=== PATIENT | female | born 1980 | race Caucasian/White ===

== ENCOUNTER 2020-10-09 15:38 | Emergency (ER) | payer MEDICAID, SELFPAY ==
[2020-10-09 15:43] VITALS: BP 124/73; PULSE 105; RESP 18; TEMP 36.8; O2SAT 98; BMI 24.3
--- NOTE | 2020-10-09 16:56 | XR_ITS ---
WS: [id number] KUB, AP supine portable, 10/09/2020 Clinical Data: Constipation Comparison: None. Findings: No abnormal intraabdominal masses or calcifications are seen. There is no dilatated small bowel or ev idence of obstruction. There is air in the stomach and small bowel. XR/XR KUB portable [id number] Impression: Negative KUB.
--- NOTE | 2020-10-09 16:57 | ED_ITS ---
HPI - Abdominal Pain General: Chief Complaint: Abdominal Pain Stated Complaint: WORSENING LOWER AB & BACK PAIN Time Seen by Provider: 10/09/20 16:53 Source: patient, RN notes reviewed and old records reviewed Mode of arrival: ambulatory Limitations: no limitations History of Present Illness: HPI narrative: This patient is a 40-year-old female who presents to the emergency room what she believes is constipation. Patient complains of discomfort to the left lower quadrant. States that she has not had a bowel movement that with any consistency over the past week to 10 days. Patient recently got off. And states that she has had little to no stool since. Patient states that she did take an [id number] laxative this cause increased cramping and a little bit of watery stool but has not had a good bowel movement and does not believe she is completely emptied out. Patient states she is is common for her and that she has a long history of constipation issues. We will do medical evaluation treat as needed. Patient denies nausea vomiting. MD elicited complaint: abdominal pain Pertinent past history: constipation Onset (ago): week(s) Pain Consistency: constant Location: LLQ Severity: mild Quality: cramping Associated Symptoms: Reports constipation; Denies chills, diarrhea, fever(s), nausea and vomiting Related Data: Date of Last Menstrual Period: 09/29/20 Review of Systems General: Reports: 10 or more systems reviewed and unremarkable except in HPI and below Const: Denies: fever(s), chills or body aches Eyes: Denies: change in vision or eye discharge ENMT: Denies: throat pain, odynophagia, hoarseness or mouth pain Card: Denies: chest pain, palpitations or irregular heart rhythm Resp: Denies: dyspnea, productive cough or wheezing GI: Reports: abdominal pain and constipation; Denies: nausea, vomiting, dysphagia or diarrhea : Denies: flank pain or difficulty voiding Musc: Denies: back pain [facility] ED Female Reproductive History: Date of last menstrual period: 09/29/20 Physical Exam Const: COMMON NORMALS: no acute distress, average body habitus, patient oriented x3, no limitations, healthy appearing, alert and well nourished HENMT: COMMON NORMALS: normocephalic, atraumatic, hearing grossly normal bilaterally, external ears normal, EAC's normal, TM's normal bilaterally, Normal external nose present, Normal nasal mucous membranes and turbinates present, moist oral mucous membranes, oropharynx normal, dentition normal and gingiva normal HEAD & SCALP: normocephalic and atraumatic NOSE: Normal external nose present and Normal nasal mucous membranes and turbinates present EXTERNAL EAR: Yes external ears normal EXTERNAL AUDITORY CANAL: EAC's normal TYMPANIC MEMBRANE: TM's normal bilaterally Neck/C-Spine: COMMON NORMALS: no JVD Chest: COMMONS NORMALS: normal inspection of the chest, normal palpation of entire chest wall, normal inspection of the breasts and normal palpation of the breasts Breast/axilla inspection: Yes normal inspection of the breasts BREAST/AXILLA PALPATION: Yes normal palpation of the breasts Resp: COMMON NORMALS: normal respiratory effort, No retractions, No use of accessory muscles, clear to auscultation bilaterally and percussion normal AUSCULTATION: clear to auscultation bilaterally PERCUSSION: percussion normal Cardio: COMMON NORMALS: no JVD, regular rate, regular rhythm, S1 normal heart sound present, S2 normal heart sound present, No gallops present (Cardio), No clicks present (Cardio), No murmurs present (Cardio), No rub (Cardio) and Peripheral pulses 2+ throughout RATE: regular rate RHYTHM: regular rhythm HEART SOUNDS: S1 normal heart sound present and S2 normal heart sound present PERIPHERAL PULSES: Peripheral pulses 2+ throughout GI: COMMON NORMALS: Normal to inspection, nondistended, normoactive bowel sounds present, Soft to palpation, non-tender, No hepatosplenomegaly present, no masses and no bruits PALPATION: Yes Soft to palpation and Yes No hepatosplenomegaly present : COMMON NORMALS: Yes no CVA tenderness, Yes normal external appearance, Yes normal appearance of the vagina, Yes normal appearance of the cervix, Yes normal bimanual exam, Yes No adnexal tenderness and Yes no masses BLADDER/KIDNEY EXAM: Yes no CVA tenderness BIMANUAL EXAM - VAGINA & UTERUS: Yes normal bimanual exam Back/Pelvis: COMMON NORMALS: no CVA tenderness Neuro: COMMON NORMALS: patient oriented x3 SENSORIUM/ORIENTATION: Yes alert Course Reevaluation(s): Reevaluation #1: Patient is stable. Care will be transferred to Dr. Bone for shift change. Time: 17:48 Vital Signs: Vital signs: Vital Signs Temperature 98.2 F 10/09/20 15:43 Pulse Rate 105 H 10/09/20 15:43 Respiratory Rate 18 10/09/20 15:43 Blood Pressure 124/73 10/09/20 15:43 Pulse Oximetry 98 10/09/20 15:43 Discharge Plan Discharge Prescriptions: No Action No Known Home Medications RF: 0 Coding Level of Care Code ED Food Photographer for Chg Fwd Exam Comprehensive
[2020-10-09 17:53] VITALS: BP 102/70; PULSE 91; RESP 16; O2SAT 99
[2020-10-09] MEDS: sodium chloride 0.9% 1,000 ML 999 ML IV (17:57)
[2020-10-09 18:04] LABS: Basophils % 0.3 %; Eosinophils # 0.2 10^3/uL (0.0-0.8); Eosinophils % 1.9 %; Hematocrit 37.5 % (37.0-47.0); Hemoglobin 12.1 g/dL (11.5-15.3); Lymphocytes # 2.5 10^3/uL (0.8-4.8); Mean Corpuscular HGB Conc 32.3 g/dL (30.0-36.0); Mean Corpuscular Hemoglobin 28.8 pg (28.0-34.0); Mean Corpuscular Volume 89.3 fL (81-99); Mean Platelet Volume 11.5 fL (7.4-10.4); Monocytes # 0.8 10^3/uL (0.2-0.9); Monocytes % 7.2 %; Neutrophils # 6.98 10^3/uL (1.8-7.7); Neutrophils % 66.3 %; Nucleated Red Blood Cells % 0 %; Platelet Count 232 10^3/cmm (130-400); Red Cell Distribution Width 14.2 % (12.1-15.1); White Blood Count 10.5 10^3/uL (4.0-10.0)
--- NOTE | 2020-10-09 18:13 | W.ED.ABDPA2 ---
HPI - Abdominal Pain General: Chief Complaint: Abdominal Pain Stated Complaint: WORSENING LOWER AB & BACK PAIN Time Seen by Provider: 10/09/20 16:53 Source: patient, RN notes reviewed and old records reviewed Mode of arrival: ambulatory Limitations: no limitations History of Present Illness: MD elicited complaint: abdominal pain Severity: mild Quality: cramping Related Data: Date of Last Menstrual Period: 09/29/20 [facility] ED Female Reproductive History: Date of last menstrual period: 09/29/20 Course Vital Signs: Vital signs: Vital Signs Temperature 98.2 F 10/09/20 15:43 Pulse Rate 91 10/09/20 17:53 Respiratory Rate 16 10/09/20 17:53 Blood Pressure 102/70 10/09/20 17:53 Pulse Oximetry 99 10/09/20 17:53 MDM - Abdominal Pain Lab Data: Labs: Lab Results 10/09/20 10/09/20 10/09/20 Range/Units 17:49 17:49 17:49 WBC (4.0-10.0) 10^3/ uL RBC (4.1-5.3) 10^6/u L Hgb (11.5-15.3) g/dL Hct (37.0-47.0) % MCV (81-99) fL MCH (28.0-34.0) pg MCHC (30.0-36.0) g/dL RDW (12.1-15.1) % Plt Count (130-400) 10^3/c mm MPV (7.4-10.4) fL Neut % (Auto) % Lymph % (Auto) % [place] % (Auto) % Eos % (Auto) % Baso % (Auto) % Neut # (Auto) (1.8-7.7) 10^3/u L Lymph # (Auto) (0.8-4.8) 10^3/u L [place] # (Auto) (0.2-0.9) 10^3/u L Eos # (Auto) (0.0-0.8) 10^3/u L Baso # (Auto) (0.0-0.1) 10^3/u L Nucleated RBC % (a uto) % Nucleated RBCs # /100WBC Sodium (136-145) mmol/L Potassium (3.5-5.1) mmol/L Chloride (98-107) mmol/L Carbon Dioxide (22-29) mmol/L Anion Gap (5-19) BUN (6-20) mg/dL Creatinine (0.5-0.9) mg/dL GFR Calculation (90-130) mL/min Glucose (65-115) mg/dL Calculated Osmolal ity (285-295) mOsm/k g Calcium (8.5-10.5) mg/dL Total Bilirubin (0.15-1.2) mg/dL AST (0-32) U/L ALT (0-33) U/L Alkaline Phosphata se (35-105) IU/L Total Protein (6.6-8.7) g/dL Albumin (3.5-5.2) g/dL Globulin (1.3-4.6) g/dL HCG, Qual Negative (Negative) Urine Color Yellow (Yellow) Urine Appearance Hazy A (CLEAR) Urine pH 6.5 (5-7) Ur Specific Gravit y 1.020 (1.005-1.030) Urine Protein Neg (Negative) Urine Glucose (UA) Norm (Normal) Urine Ketones Negative (Negative) Urine Blood Trace H (Negative) Urine Nitrate Negative (Negative) Urine Bilirubin Neg (Negative) Urine Urobilinogen Norm (Negative) mg/dL Ur Leukocyte Irina ase Negative (Negative) Urine RBC 0-4 H (0-2) /hpf Urine WBC None (0-5) /hpf Ur Squamous Epith Cells 15-25 H (0-5) /hpf Amorphous Sediment 3+ /hpf Urine Bacteria Trace (NONE) /hpf Urine Opiates Scre en Negative (Negative) ng/mL Ur Barbiturates Sc reen Negative (Negative) ng/mL Ur Phencyclidine S crn Negative (Negative) ng/mL Ur Amphetamines Sc reen Negative (Negative) ng/mL U Benzodiazepines Scrn Positive H (Negative) ng/mL Urine Cocaine Scre en Negative (Negative) ng/mL U Marijuana (THC) Screen Positive H (Negative) ng/mL 10/09/20 10/09/20 Range/Units 17:55 17:55 WBC 10.5 H (4.0-10.0) 10^3/ uL RBC 4.20 (4.1-5.3) 10^6/u L Hgb 12.1 (11.5-15.3) g/dL Hct 37.5 (37.0-47.0) % MCV 89.3 (81-99) fL MCH 28.8 (28.0-34.0) pg MCHC 32.3 (30.0-36.0) g/dL RDW 14.2 (12.1-15.1) % Plt Count 232 (130-400) 10^3/c mm MPV 11.5 H (7.4-10.4) fL Neut % (Auto) 66.3 % Lymph % (Auto) 24.0 % [place] % (Auto) 7.2 % Eos % (Auto) 1.9 % Baso % (Auto) 0.3 % Neut # (Auto) 6.98 (1.8-7.7) 10^3/u L Lymph # (Auto) 2.5 (0.8-4.8) 10^3/u L [place] # (Auto) 0.8 (0.2-0.9) 10^3/u L Eos # (Auto) 0.2 (0.0-0.8) 10^3/u L Baso # (Auto) 0.0 (0.0-0.1) 10^3/u L Nucleated RBC % (a uto) 0 % Nucleated RBCs # 0.0 /100WBC Sodium 139 (136-145) mmol/L Potassium 3.8 (3.5-5.1) mmol/L Chloride 103 (98-107) mmol/L Carbon Dioxide 27 (22-29) mmol/L Anion Gap 12.8 (5-19) BUN 8 (6-20) mg/dL Creatinine 0.8 (0.5-0.9) mg/dL GFR Calculation 79.0 L (90-130) mL/min Glucose 94 (65-115) mg/dL Calculated Osmolal ity 286 (285-295) mOsm/k g Calcium 9.0 (8.5-10.5) mg/dL Total Bilirubin 0.2 (0.15-1.2) mg/dL AST 19 (0-32) U/L ALT 19 (0-33) U/L Alkaline Phosphata se 93 (35-105) IU/L Total Protein 6.6 (6.6-8.7) g/dL Albumin 3.8 (3.5-5.2) g/dL Globulin 2.8 (1.3-4.6) g/dL HCG, Qual (Negative) Urine Color (Yellow) Urine Appearance (CLEAR) Urine pH (5-7) Ur Specific Gravit y (1.005-1.030) Urine Protein (Negative) Urine Glucose (UA) (Normal) Urine Ketones (Negative) Urine Blood (Negative) Urine Nitrate (Negative) Urine Bilirubin (Negative) Urine Urobilinogen (Negative) mg/dL Ur Leukocyte Irina ase (Negative) Urine RBC (0-2) /hpf Urine WBC (0-5) /hpf Ur Squamous Epith Cells (0-5) /hpf Amorphous Sediment /hpf Urine Bacteria (NONE) /hpf Urine Opiates Scre en (Negative) ng/mL Ur Barbiturates Sc reen (Negative) ng/mL Ur Phencyclidine S crn (Negative) ng/mL Ur Amphetamines Sc reen (Negative) ng/mL U Benzodiazepines Scrn (Negative) ng/mL Urine Cocaine Scre en (Negative) ng/mL U Marijuana (THC) Screen (Negative) ng/mL Discharge Plan Discharge Patient Disposition: Home Clinical Impression: Abdominal pain Qualifiers: Abdominal location: generalized Qualified Code(s): R10.84 - Generalized abdominal pain Constipation Qualifiers: Constipation type: unspecified constipation type Qualified Code(s): K59.00 - Constipation, unspecified Condition: Stable Prescriptions: No Action No Known Home Medications RF: 0 Discharge Orders: Discharge ED (Routine); Ordered 10/09/20 Ordered By: Davion Bone Referrals: Anusha Mejia FNP-C [Primary Care Provider] - Discharge Diet: Advance as tolerated Discharge Activity: Resume usual activity Patient Instructions: Abdominal Pain (ED) Activity Restrictions/Additional Instructions: Increase noncaffeinated/nonalcoholic fluids. Continue with MiraLAX. Coding Level of Care Code ED Bullet Slug Casting Machine Operator for Alvin Lu
[2020-10-09 18:27] LABS: HCG Qualitative Urine. Negative (Negative)
[2020-10-09 18:28] LABS: Add Urine Microscopic? YES; Bilirubin Urine Neg (Negative); Blood Urine Trace (Negative); Glucose Urine UA Norm (Normal); Ketones Urine Negative (Negative); Leukocyte Esterase Urine Negative (Negative); Nitrate Urine Negative (Negative); Protein Urine Neg (Negative); Urine Appearance Hazy (CLEAR); Urine Color Yellow (Yellow); Urobilinogen Urine Norm (Negative); pH Urine 6.5 (5-7)
[2020-10-09 18:33] LABS: Add Urine Culture? No; Amorphous Sediment Urine 3+ /hpf; Bacteria Urine TRACE /hpf; RBC Urine 0-4 /hpf (0-2); Squamous Epithelial Cell Urine 15-25 /hpf (0-5)
[2020-10-09 18:43] LABS: Alanine Aminotransferase 19 U/L (0-33); Albumin Level 3.8 g/dL (3.5-5.2); Alkaline Phosphatase 93 IU/L (35-105); Anion Gap 12.8 (5-19); Aspartate Amino Transferase 19 U/L (0-32); Blood Urea Nitrogen 8 mg/dL (6-20); Carbon Dioxide 27 mmol/L (22-29); Chloride 103 mmol/L (98-107); Globulin 2.8 g/dL (1.3-4.6); Glucose 94 mg/dL (65-115); Osmolality Calculated 286 mOsm/kg (285-295); Potassium 3.8 mmol/L (3.5-5.1); Sodium 139 mmol/L (136-145); Total Bilirubin 0.2 mg/dL (0.15-1.2); Total Protein 6.6 g/dL (6.6-8.7)
[2020-10-09 18:45] LABS: Amphetamines Screen Urine Negative (Negative); Barbiturates Screen Urine Negative (Negative); Benzodiazepines Screen Urine Positive (Negative); Cocaine Screen Urine Negative (Negative); Opiate Screen Urine Negative (Negative); PCP Screen Urine Negative (Negative); THC Screen Urine Positive (Negative)
== END 2020-10-09 20:09 | disposition home or self-care (01) ==
PROVIDERS: Emergency Medicine; Emergency Provider Emergency Medicine; PCP Nurse Practitioner Family
DX: K59.00 Constipation, unspecified (principal); R10.84 Generalized abdominal pain
CPT/HCPCS: 12345; 74018; 80053; 80306; 81001; 81025; 85025; 96360; 99283; J7030

== ENCOUNTER → 2020-10-22 13:55 | Outpatient (BNVA) | payer MEDICAID, SELFPAY | PROVIDERS: PCP Nurse Practitioner Family; Visit Provider Nurse Practitioner Family | DX: R10.9 Unspecified abdominal pain (principal); N93.9 Abnormal uterine and vaginal bleeding, unspecified; R10.84 Generalized abdominal pain | CPT/HCPCS: 81000; 85025; 87491; 87591 ==

== ENCOUNTER 2020-10-24 10:05 | Outpatient (CLI) | payer MEDICAID, SELFPAY ==
--- NOTE | 2020-10-24 10:15 | US_ITS ---
WS: [id number] Complete ABDOMINAL ULTRASOUND HISTORY: R10.9 - Unspecified abdominal pain COMPARISON: None available. Liver: 14.1 cm in length. Liver is normal size and echogenicity with no mass or intrahepatic dilatati on. Gallbladder: Normally distended with no gallstones, wall thickening or pericholecystic fluid. Gallbladder wall thickness: 0.3 cm. Pancreas: Normal size and echogenicity. CBD: 0.4 cm. Right kidney: 10.6 cm x 6.0 cm x 4.1 cm. No mass, cortical thickening or hydronephrosis. Left kidney: 9.5 cm x 5.0 cm x 4.7 cm. No mass, cortical thickening or hydronephrosis. Spleen: Normal size and echogenicity. Abdominal aorta and IVC are within normal limits. No ascites. US/US abdomen complete* [id number] IMPRESSION: Normal complete abdomen ultrasound.
--- NOTE | 2020-10-24 11:00 | US_ITS ---
WS: [id number] TRANSABDOMINAL PELVIC ULTRASOUND HISTORY: N93.9 - Abnormal uterine and vaginal bleeding, unspecified COMPARISON: None available. Patient refused transvaginal imaging. Uterus: 11.6 cm x 7.3 cm x 5.2 cm. Uterus is enlarged and anteverted. Endometrium: 1.6 cm. Abnormal appearance of the endometrium and the adjacent myometrium. Loss of the normal junctional zone between the endometrium and the myometrium. There is a heterogeneous ill-defin ed area of mildly increased echogenicity as compared to the normal myometrium extending posterior fro m the endometrial canal. Loss of the normal junctional zone. There are a few cystic areas within the periphery of this increased echogenicity. Right ovary: 3.2 cm x 2.4 cm x 2.4 cm; no solid or cystic mass. Normal vascularity. Left ovary: 3.9 cm x 3.6 cm x 2.1 cm; no solid or cystic mass. Small follicles. Normal vascularity. No free fluid in the cul-de-sac. US/US pelvic complete* [id number] IMPRESSION: 1. Very limited evaluation of the endometrium as patient refused transvaginal imaging. 2. Abnormal appearance of the endometrium and the adjacent myometrium with los s of the normal junctional zone. Differential includes endometrial neoplasm, ad enomyosis and hyperplasia. Recommend hysteroscopy and direct visualization. 3. Mild uterine enlargement.
== END 2020-10-24 10:06 | disposition home or self-care (01) ==
LOC: RAD 10:07
PROVIDERS: PCP Nurse Practitioner Family; Visit Provider Nurse Practitioner Family
DX: R10.9 Unspecified abdominal pain (principal); N93.9 Abnormal uterine and vaginal bleeding, unspecified; N85.2 Hypertrophy of uterus; N85.8 Other specified noninflammatory disorders of uterus
CPT/HCPCS: 76700; 76856

== ENCOUNTER → 2020-10-27 14:31 | Outpatient (BNVA) | payer MEDICAID, SELFPAY | PROVIDERS: PCP Nurse Practitioner Family; Visit Provider Obstetrics & Gynecology | DX: N93.9 Abnormal uterine and vaginal bleeding, unspecified (principal); N93.8 Other specified abnormal uterine and vaginal bleeding | CPT/HCPCS: 83001; 84146; 84443; 84702; 85025 ==

== ENCOUNTER 2020-11-18 10:57 | Outpatient (CLI) | payer MEDICAID, SELFPAY ==
[2020-11-18] MEDS: iohexol 300 mg/mL 50 mL Btl PO (11:17)
--- NOTE | 2020-11-18 13:00 | CT_ITS ---
WS: [id number] CT ABDOMEN PELVIS TECHNIQUE: Contrast-enhanced CT of the abdomen and pelvis with coronal and sagittal reformatted image s. CLINICAL INFORMATION: R10.9 - Unspecified abdominal pain COMPARISON: None. DLP: 1127.[address] scans at [facility] use at least one of these dose optimization techniques: automat ed exposure control; mA and/or kV adjustment per patient size (includes targeted exams where dose is matched to clinical indication); or iterative reconstruction. FINDINGS: Hepatomegaly. Diffuse fatty infiltration of the liver. Portal vein and splenic vein are normal. Perip herally enhancing right hepatic lesion most consistent with hepatic hemangioma measuring 1.6 x 1.4 cm . Normal gallbladder. Normal spleen. Normal GE junction. Adrenal glands are normal. Normal renal pare nchymal enhancement. No hydronephrosis. Normal pancreas. Normal caliber abdominal aorta. Fat-containing umbilical hernia. No inguinal lymphad enopathy. No abdominal lymphadenopathy. Enlarged uterus with heterogeneous uterine enhancement. Right ovarian cyst measuring 1.6 cm. Enlarged multi follicular left ovary measuring 3.1 x 3.9 cm. Sigmoid colon is closely adherent to the uterus and left ovary which may be due to adhesions from prior surgery. No evidence of high-grade small or large bowel obstruction. Fat-containing umbilical hernia. Normal g allbladder. Lung bases are well aerated. No abdominal or inguinal lymphadenopathy. CT/CT abdomen pelvis w con* [id number] IMPRESSION: 1. Mild diffuse fatty infiltration of the liver. 2. Peripheral enhancing right hepatic lesion most consistent with incidental c avernous hemangioma measuring 1.6 x 1.4 CM. 3. No hydronephrosis in either kidney. 4. Small fat-containing umbilical hernia. No ventral abdominal wall hernia. No herniated bowel. 5. Enlarged uterus with heterogeneous enhancement. Uterus can be further evalu ated with hysteroscopy. 6. Right ovarian cyst measuring 1.6 cm. Multi-follicular enlarged left ovary. 7. Sigmoid colon is closely adherent to the uterus and left ovary which may be due to adhesions from prior surgery. Correlation with symptoms of constipation . 8. No evidence of small or large bowel obstruction.
[2020-11-18] MEDS: iohexol 300 mg/mL 100 mL Btl IV (13:35)
== END 2020-11-18 10:58 | disposition home or self-care (01) ==
LOC: RADWPI 10:59
PROVIDERS: PCP Nurse Practitioner Family; Visit Provider Surgery
DX: R10.9 Unspecified abdominal pain (principal); N85.2 Hypertrophy of uterus; K42.9 Umbilical hernia without obstruction or gangrene; K76.0 Fatty (change of) liver, not elsewhere classified
CPT/HCPCS: 74177; Q9967

== ENCOUNTER → 2020-12-04 13:23 | Outpatient (BNVA) | payer MEDICAID, SELFPAY | PROVIDERS: PCP Nurse Practitioner Family; Visit Provider Obstetrics & Gynecology | DX: N93.9 Abnormal uterine and vaginal bleeding, unspecified | CPT/HCPCS: 81025; 88305 ==

== ENCOUNTER 2021-01-05 09:40 | Outpatient (CLI) | payer MEDICAID, SELFPAY ==
--- NOTE | 2021-01-05 10:00 | NM_ITS ---
WS: [id number] NUCLEAR MEDICINE HIDA SCAN CLINICAL INFORMATION: R10.9 - Unspecified abdominal pain TECHNIQUE: Following intravenous administration of 5.2 mCi of technetium 99m mebrofenin, images of th e abdomen were obtained over the course of 60 minutes. Next, gallbladder ejection fraction was determ ined by obtaining preprandial and one-hour postprandial images of the gallbladder following oral nael stion of Ensure. COMPARISON: None. FINDINGS: Normal hepatic uptake at 5 minutes. Hepatomegaly. Normal common bile duct. Gallbladder is visualized by 10 minutes. No evidence of acute cholecystitis or choledocholithiasis. Normal small bowel activity. Gallbladder ejection fraction 62% within normal limits. No evidence of c hronic cholecystitis. NM/NM hepatobiliary w phar* [id number] IMPRESSION: 1. No evidence of acute or chronic cholecystitis. 2. Normal common bile duct and small bowel activity. 3. Gallbladder ejection fraction 62% within normal limits.
== END 2021-01-05 09:41 | disposition home or self-care (01) ==
PROVIDERS: PCP Nurse Practitioner Family; Visit Provider Surgery
DX: R10.9 Unspecified abdominal pain (principal)
CPT/HCPCS: 78227; A9537

== ENCOUNTER → 2021-02-17 15:04 | Outpatient (BNVA) | payer MEDICAID, SELFPAY | PROVIDERS: PCP Nurse Practitioner Family; Visit Provider Nurse Practitioner Family | DX: S60.459A Superficial foreign body of unspecified finger, initial encounter (principal); X58.XXXA Exposure to other specified factors, initial encounter | CPT/HCPCS: 73130 ==

== ENCOUNTER → 2021-04-02 15:21 | Outpatient (BNVA) | payer MEDICAID, SELFPAY | PROVIDERS: PCP Nurse Practitioner Family; Visit Provider Nurse Practitioner Family | DX: S60.459A Superficial foreign body of unspecified finger, initial encounter (principal); L08.9 Local infection of the skin and subcutaneous tissue, unspecified; X58.XXXA Exposure to other specified factors, initial encounter | CPT/HCPCS: 87070; 87077; 87184 ==

== ENCOUNTER → 2021-08-03 09:46 | Outpatient (BNVA) | payer MEDICAID, SELFPAY | PROVIDERS: PCP Nurse Practitioner Family; Visit Provider Nurse Practitioner Family | DX: R07.9 Chest pain, unspecified (principal); D64.9 Anemia, unspecified; Z13.6 Encounter for screening for cardiovascular disorders | CPT/HCPCS: 80053; 80061; 82728; 83550; 84443; 84484; 85025 ==

== ENCOUNTER 2021-09-24 11:39 | Emergency (ER) | payer MEDICAID, SELFPAY ==
[2021-09-24 11:50] VITALS: BP 134/74; PULSE 104; RESP 16; TEMP 36.8; O2SAT 97; BMI 24.3
--- NOTE | 2021-09-24 11:57 | ECG_ITS ---
[facility] Test Date: 2021-09-24 Pat Name: Yancy Cazares Department: Room: Gender: Female Bag Sorter: : 1980 Requested By: Marisabel Johnston Order Number: [id number] Rolo MD: Serena Hayward M.D. Measurements Intervals [place] Rate: 96 P: 5 NE: 158 QRS: 0 QRSD: 74 T: 12 QT: 334 QTc: 424 Interpretive Statements SINUS RHYTHM LOW QRS VOLTAGE IN PRECORDIAL LEADS [QRS DEFLECTION < 1.0 mV IN CHEST LEADS] INTERPRETATION BASED ON A DEFAULT AGE OF 40 YEARS No previous ECG available for comparison Electronically Signed On 09-24-2021 20:24:13 SLASHER TENDER by Serena Hayward M.D. [email or web address]
--- NOTE | 2021-09-24 11:57 | XR_ITS ---
WS: [id number] Portable AP upright chest, 09/24/2021 Clinical Data: chest pain Comparison: PA and lateral chest, 04/20/2018. Findings: No nodules, masses or effusions are seen. The heart is normal. The pulmonary vascularity is not increased. No pneumonia or pneumothorax is seen. There is an electronic monitoring device overly ing the left upper chest. XR/XR chest 1V portable [id number] Impression: Negative chest.
[2021-09-24 12:39] LABS: Basophils % 0.4 %; Eosinophils # 0.2 10^3/uL (0.0-0.8); Eosinophils % 1.8 %; Hematocrit 33.5 % (37.0-47.0); Hemoglobin 10.9 g/dL (11.5-15.3); Lymphocytes # 1.7 10^3/uL (0.8-4.8); Lymphocytes % 20.2 %; Mean Corpuscular HGB Conc 32.5 g/dL (30.0-36.0); Mean Corpuscular Hemoglobin 25.7 pg (28.0-34.0); Mean Platelet Volume 11.1 fL (7.4-10.4); Monocytes # 0.6 10^3/uL (0.2-0.9); Monocytes % 6.8 %; Neutrophils # 5.88 10^3/uL (1.8-7.7); Neutrophils % 70.6 %; Nucleated Red Blood Cells % 0 %; Platelet Count 232 10^3/cmm (130-400); Red Blood Count 4.24 10^6/uL (4.1-5.3); Red Cell Distribution Width 18.3 % (12.1-15.1); White Blood Count 8.3 10^3/uL (4.0-10.0)
[2021-09-24 12:56] LABS: Anion Gap 17.9 (5-19); Blood Urea Nitrogen 8 mg/dL (6-20); Calcium 9.5 mg/dL (8.5-10.5); Carbon Dioxide 22 mmol/L (22-29); Chloride 104 mmol/L (98-107); Glomerular Filtration Rate 109.6 mL/min (90-130); Glucose 88 mg/dL (65-115); Osmolality Calculated 288 mOsm/kg (285-295); Potassium 3.9 mmol/L (3.5-5.1); Sodium 140 mmol/L (136-145)
[2021-09-24 12:57] LABS: Troponin(5th) Baseline 6 ng/L (0-10)
--- NOTE | 2021-09-24 13:22 | ED_ITS ---
HPI - General Adult General: Chief complaint: Chest Pain Stated complaint: Chest Pains, pins and needles in fingers Time Seen by Provider: 09/24/21 11:58 History of Present Illness: HPI narrative: Patient is a 41-year-old female with a history of episodes of fast heart rate only on a Holter monitor followed by Dr. Noonan presents the emergency room for evaluation of new onset of palpitation, lightheadedness, and chest pain at 7am that woke her up. She is currently waiting her echo. No family history of sudden cardiac . Patient denies any history of smoking or recent drug use, history of thyroid disease or issues. No other focal complaints today. Onset: 5 hrs ago Duration:45 minutes Location:home Severity:moderate Associated symptoms: Reports chest pain, dyspnea and palpitations; Deny nausea, rash or vomiting Review of Systems Const: Denies: fever(s) or chills Eyes: Denies: change in vision ENMT: Denies: mouth pain Card: Reports: chest pain and palpitations Resp: Reports: dyspnea; Denies: non-productive cough GI: Denies: abdominal pain, nausea, vomiting or diarrhea : Denies: dysuria Musc: Denies: extremity pain Skin/Breast: Denies: rash or new lesions Neuro: Denies: weakness in extremities Psych: Reports: other (Normal mood) Mamadou/Lymph: Denies: easy bruising PFSH ED PFSH: Medical History Abnormal uterine bleeding (AUB) Surgical History History of colonoscopy 2008 Hx of section Family History Grandfather Hypertension maternal Stroke maternal Father Lung cancer Family/Other Heart disease maternal uncle Denies family history of Colon cancer Ovarian cancer Diabetes Clotting disorder Hyperlipidemia Breast cancer Anesthesia complication Bleeding disorder Uterine cancer Thyroid condition Social History Smoking and tobacco status: current every day smoker cigarettes [ Other cigarette details: less than a pack per day ] Alcohol intake: current Alcohol intake frequency: holidays/special occasions only Alcohol type: beer and wine Other details last substance use: marijuana use over 6 years ago Female Reproductive History: Date of last menstrual period: 12/25/21 Physical Exam Const: COMMON NORMALS: alert HENMT: COMMON NORMALS: atraumatic HEAD & SCALP: atraumatic MOUTH: moist mucous membranes not abnormal Eye: COMMON NORMALS: EOMs intact bilaterally and conjunctivae normal CONJUNCTIVA: Yes conjunctivae normal Neck/C-Spine: COMMON NORMALS: full ROM and supple Resp: COMMON NORMALS: normal respiratory effort and clear to auscultation bilaterally AUSCULTATION: clear to auscultation bilaterally Cardio: COMMON NORMALS: regular rate RATE: regular rate GI: COMMON NORMALS: Soft to palpation and non-tender PALPATION: Yes Soft to palpation Extremity: COMMON NORMALS: full ROM Neuro: SENSORIUM/ORIENTATION: Yes alert MOTOR EXAM: Abnormal motor strength present and Other motor observations present (no focla motor deficits) Psych: COMMON NORMALS: speech normal SPEECH: Yes normal speech MOOD & AFFECT: Yes euthymic mood Course Vital Signs: Vital signs: Vital Signs Temperature 98.2 F 09/24/21 11:50 Pulse Rate 86 09/24/21 13:28 Respiratory Rate 16 09/24/21 13:28 Blood Pressure 122/77 09/24/21 13:28 Pulse Oximetry 99 09/24/21 13:28 MDM - General Adult MDM Narrative: Medical decision making narrative: 41-year-old female presents the emergency room with complaints of chest pain tachycardia and palpitation around 7 AM and upon waking up. On exam, patient is afebrile, noted to be mildly tachycardic to low 100s. Other focal findings today. EKG showing regular sinus rhythm at HT of [96]. Normal axis. No ST elevations/depressions to suggest coronary occlusion. Normal OH, QRS, QT intervals. EKG did not this show any signs of Brugada, QT prolongation, HOCM or WPW. Case was discussed with Dr. Varner to review the Holter monitor and noticed the patient was in paroxysmal SVT this morning. Provider recommended outpatient echo and starting patient on beta ronda with close follow up with Dr. Noonan. Doubt ACS/PE or other emergent causes of chest pain. No suspicion for aortic dissection given no widened mediastinum, 2+ upper extremity pulses, or tearing pain. No suspicion for PE given no pleuritic chest pain, recent immobilization or surgery hemoptysis, or other VTE risk factors. EKG is non-ischemic. XR normal. I have given patient follow up with our immigration case manager to be seen by Dr. Noonan for paroxsymal SVT. Patient aware of a call from our immigration case manager to schedule for appointment(s) and verbalizes understanding of the importance of following up. Rx metoprolol 25mg BID for SVT Disposition: Discharge. Patient counseled regarding diagnostic impression, treatment plan. Patient given ED strict return precautions to return for continuation, worsening, or development of new symptoms. Instructed to f/u w/ Cardiology regarding symptoms today. Patient verbalized understanding. Given strict return precaution for any worsening pain, lightheadedness, or any other issues. Instructed to not operate heavy machinery, drive, bathe on her own unsupervised whenever she is having these episodes. Lab Data: Labs: Lab Results 09/24/21 09/24/21 09/24/21 12:20 12:20 12:20 WBC 8.3 10^3/uL 10^3/ uL (4.0-10.0) RBC 4.24 10^6/uL 10^6 /uL (4.1-5.3) Hgb 10.9 g/dL L g/dL (11.5-15.3) Hct 33.5 % L % (37.0-47.0) MCV 79.0 fl L fl (81-99) MCH 25.7 pg L pg (28.0-34.0) MCHC 32.5 g/dL g/dL (30.0-36.0) RDW 18.3 % H % (12.1-15.1) Plt Count 232 10^3/cmm 10^3 /cmm (130-400) MPV 11.1 fL H fL (7.4-10.4) Neut % (Auto) 70.6 % % Lymph % (Auto) 20.2 % % [place] % (Auto) 6.8 % % Eos % (Auto) 1.8 % % Baso % (Auto) 0.4 % % Neut # (Auto) 5.88 10^3/uL 10^3 /uL (1.8-7.7) Lymph # (Auto) 1.7 10^3/uL 10^3/ uL (0.8-4.8) [place] # (Auto) 0.6 10^3/uL 10^3/ uL (0.2-0.9) Eos # (Auto) 0.2 10^3/uL 10^3/ uL (0.0-0.8) Baso # (Auto) 0.0 10^3/uL 10^3/ uL (0.0-0.1) Nucleated RBC % (a uto) 0 % % Nucleated RBCs # 0.0 /100WBC /100W BC Sodium 140 mmol/L mmol/L (136-145) Potassium 3.9 mmol/L mmol/L (3.5-5.1) Chloride 104 mmol/L mmol/L (98-107) Carbon Dioxide 22 mmol/L mmol/L (22-29) Anion Gap 17.9 (5-19) BUN 8 mg/dL mg/dL (6-20) Creatinine 0.6 mg/dL mg/dL (0.5-0.9) GFR Calculation 109.6 mL/min mL/m in (90-130) Glucose 88 mg/dL mg/dL (65-115) Calculated Osmolal ity 288 mOsm/kg mOsm/ kg (285-295) Calcium 9.5 mg/dL mg/dL (8.5-10.5) Troponin T Baselin e 6 ng/L ng/L (0-10) Imaging Data^: Other Imaging: Radiologist's impression: [address] [id number] ReportSigned Patient: Yancy Caazres #: [id number]: [id number]#:[id number]/Sex: 41 / FADM Date: 09/24/21Loc: ERRoom/Bed:Attending Dr: Ordering Provider/Ordering MD: Marisabel Johnston MD Date of Service: 09/24/21 Procedure(s): XR chest 1V portable [id number] Accession Number(s): [id number] Report Number: [id number] WS: [id number] Portable AP upright chest, 09/24/2021 Clinical Data: chest pain Comparison: PA and lateral chest, 04/20/2018. Findings: No nodules, masses or effusions are seen. The heart is normal. The pulmonary vascularity is not increased. No pneumonia or pneumothorax is seen. There is an electronic monitoring device overlying the left upper chest. XR/XR chest 1V portable [id number] Impression: Negative chest. Dictated By:Prachi Worrell MDSigned By:Prachi Worrell MDSigned Date/Time:09/24/21 1235DD/ 1234 Discharge Plan Discharge Patient Disposition: Home Clinical Impression: SVT (supraventricular tachycardia), Chest pain Condition: Stable Prescriptions: New metoprolol tartrate 25 mg tablet 25 mg PO BID 30 Days Qty: 60 RF: 0 No Action ibuprofen 800 mg tablet 800 mg PO TID Qty: 30 RF: 0 aspirin [Adult Aspirin Regimen] 81 mg tablet,delayed release (DR/EC) 81 mg PO DAILY RF: 0 Discharge Orders: Discharge ED (Routine); Ordered 09/24/21 Ordered By: Marisabel Johnston Referrals: Anusha Mejia FNP-C [Primary Care Provider] - Discharge Diet: Advance as tolerated Discharge Activity: Resume usual activity Patient Instructions: Chest Pain (ED) Activity Restrictions/Additional Instructions: Come back to the emergency room if your chest pain worsens, have any fever or chills, worsening shortness of breath, worsening exertional lightheadedness, or any new or concerning complaints. Our immigration case manager will have you follow-up with Dr. Noonan in the next 1-2 weeks. You would be expected to have a phone call with our immigration case manager who will put you on the schedule. If you don't hear from us, call us back in the emergency room. Coding Level of Care Code ED Business Assistant for Alvin Fwmariam Exam Comprehensive
[2021-09-24] MEDS: metoprolol tartrate 25 mg Tablet PO (13:27)
[2021-09-24 13:28] VITALS: BP 122/77; PULSE 86; RESP 16; O2SAT 99
--- NOTE | 2021-09-24 15:06 | DCPLANNER ---
Addendum entered by Palak Fleming 10/22/21 16:08: Patient had a follow up appointment scheduled for 09.29.21 with [facility] - patient did attend appointment. Original Note: rehab department manager had message to schedule a follow up appointment for patient with [facility]. rehab department manager called [facility], spoke with Karla Tipton, gave clinic patients information. A follow up appointment was scheduled for Wednesday, September 29, 2021 at 3:[address] Noonan. rehab department manager called patient, spoke with patients mother, gave her the appointment information.
== END 2021-09-24 13:46 | disposition home or self-care (01) ==
PROVIDERS: Emergency Provider Emergency Medicine; PCP Nurse Practitioner Family
DX: R07.9 Chest pain, unspecified (principal); I47.1 Supraventricular tachycardia; Z79.82 Long term (current) use of aspirin; F17.210 Nicotine dependence, cigarettes, uncomplicated
CPT/HCPCS: 71045; 80048; 84484; 85025; 93005; 99283